=== PATIENT | female | born 1970 | race Caucasian/White ===

== ENCOUNTER 2017-10-23 12:13 | Emergency (ER) | payer SELFPAY ==
[~2017-10-23] VITALS: Ht 162.6 cm; Wt 160.0 kg
[2017-10-23 12:40] VITALS: BP 184/90; PULSE 90; RESP 20; TEMP 98.6; O2SAT 94
[2017-10-23] MEDS ORDERED: SODIUM CHLORIDE 0.9% FLUSH 10 ML FLUSH IVF PRN (13:15)
--- NOTE | 2017-10-23 13:38 | PD ---
HPI Chief Complaint: Cardiac Complaint Time Seen by Provider: 12:54 Travel History International Travel<30 days: No Contact w/Intl Traveler<30days: No Traveled to known affect area: No History of Present Illness HPI 47-year-old female presents to the emergency department with complaint of heart "fluttering "that started on Sunday. She thought it was her anxiety and so she took a quarter of an Ativan and she also took an additional half of 1 of her atenolol and a calm down. He was better yesterday, but today it has become more constant and she felt like passing out earlier. She did take another quarter of a 1 mg Ativan and has not had any relief of the fluttering sensation. She denies chest pain. Reports shortness of breath "a little" with walking. No shortness of breath while at rest. Denies fever, vomiting, abdominal pain. Denies recent illness to include cough or congestion. Shortness breath is aggravated with walking. Heart palpitations were calm down with Ativan and atenolol on Sunday. Symptoms are moderate to severe in severity. Fluttering has been constant today. Primary CARE providers Dr. Fay. No known allergies. History of hypertension and anxiety. Also states she started a ketogenic diet in May and has lost 26 pounds. She has no other medical complaints. No other modifying factors or associated signs and symptoms. PFSH Past Medical History ?: Not Social History Tobacco Use: No Allergies-Medications (Allergen,Severity, Reaction): Coded Allergies: No Known Allergies (Unverified , 10/23/17) Review of Systems Except as stated in HPI: all other systems reviewed are Neg Physical Exam Narrative GENERAL: Well-nourished, well-developed female patient, in no acute distress SKIN: Warm and dry. HEAD: Atraumatic. Normocephalic. EYES: Pupils equal and round. No scleral icterus. No injection or drainage. ENT: Mucosa pink and moist. Airway patent. NECK: Trachea midline. CARDIOVASCULAR: Regular rate and rhythm. No murmur appreciated. RESPIRATORY: No accessory muscle use. Breath sounds clear and equal bilaterally. No retractions or tachypnea. GASTROINTESTINAL: Morbidly obese MUSCULOSKELETAL: No obvious deformities. No clubbing. No cyanosis. No edema. NEUROLOGICAL: Awake and alert. Oriented 3. No obvious cranial nerve deficits. Motor grossly within normal limits. Normal speech. PSYCHIATRIC: Appropriate mood and affect; insight and judgment normal. Data Data Last Documented VS Vital Signs Date Time Temp Pulse Resp B/P (MAP) Pulse Ox O2 Delivery O2 Flow Rate FiO2 10/23/17 19:31 10/23/17 14:29 100 Room Air 10/23/17 12:40 98.6 90 20 Orders Orders Electrocardiogram (10/23/17 13:06) Basic Metabolic Panel (Bmp) (10/23/17 13:06) Ckmb (Isoenzyme) Profile (10/23/17 13:06) Complete Blood Count With Diff (10/23/17 13:06) Magnesium (Mg) (10/23/17 13:06) Prothrombin Time / Inr (Pt) (10/23/17 13:06) Act Partial Throm Time (Ptt) (10/23/17 13:06) Troponin I (10/23/17 13:06) Ecg Monitoring (10/23/17 13:06) Iv Access Insert/Monitor (10/23/17 13:06) Oximetry (10/23/17 13:06) Sodium Chloride 0.9% Flush (Ns Flush) (10/23/17 13:15) Chest, Pa & Lat (10/23/17 13:06) Troponin I (10/23/17 17:15) Ed Discharge Order (10/23/17 19:14) Labs Laboratory Tests Test 10/23/17 14:15 10/23/17 17:30 White Blood Count 8.8 TH/MM3 Red Blood Count 4.88 MIL/MM3 Hemoglobin 13.1 GM/DL Hematocrit 38.7 % Mean Corpuscular Volume 79.3 FL Mean Corpuscular Hemoglobin 26.8 PG Mean Corpuscular Hemoglobin Concent 33.8 % Red Cell Distribution Width 14.8 % Platelet Count 282 TH/MM3 Mean Platelet Volume 7.8 FL Neutrophils (%) (Auto) 65.8 % Lymphocytes (%) (Auto) 27.7 % Monocytes (%) (Auto) 4.8 % Eosinophils (%) (Auto) 0.8 % Basophils (%) (Auto) 0.9 % Neutrophils # (Auto) 5.8 TH/MM3 Lymphocytes # (Auto) 2.4 TH/MM3 Monocytes # (Auto) 0.4 TH/MM3 Eosinophils # (Auto) 0.1 TH/MM3 Basophils # (Auto) 0.1 TH/MM3 CBC Comment DIFF FINAL Differential Comment Prothrombin Time 10.3 SEC Prothromb Time International Ratio 1.0 RATIO Activated Partial Thromboplast Time 25.4 SEC Blood Urea Nitrogen 11 MG/DL Creatinine 0.70 MG/DL Random Glucose 107 MG/DL Calcium Level 9.1 MG/DL Magnesium Level 1.9 MG/DL Sodium Level 138 MEQ/L Potassium Level 3.8 MEQ/L Chloride Level 101 MEQ/L Carbon Dioxide Level 28.9 MEQ/L Anion Gap 8 MEQ/L Estimat Glomerular Filtration Rate 90 ML/MIN Total Creatine Kinase 64 U/L Troponin I LESS THAN 0.02 NG/ML LESS THAN 0.02 NG/ML MDM Medical Decision Making Medical Screen Exam Complete: Yes Emergency Medical Condition: Yes Medical Record Reviewed: Yes Differential Diagnosis Heart palpitations, anxiety, GA, SVT, ACS Narrative Course 47-year-old female with complaint of heart fluttering since Sunday. Has history of anxiety. Denies chest pain. Reports shortness of breath with activity. No shortness of breath while at rest. Patient is in no acute distress. I discussed the patient with Dr. Velazquez and he agrees with my plan of care. Chest pain protocol ordered; EKG, chest x-ray ordered. EKG with normal sinus rhythm; without ST elevation or depression; reviewed by Dr. Velazquez. 1500: CBC, CMP unremarkable. Troponin less than 0.02. Coags unremarkable. Chest x-ray unremarkable. Repeat troponin ordered for 3 hours. 1913: Less than 0.02. Instructed patient to follow-up with stock blender and for outpatient Holter monitoring. Instructed patient to follow up with primary care provider. Patient verbalizes understanding and agreement with treatment plan. Patient is medically cleared and stable for discharge. Discussed reasons to return to the emergency department. Patient agrees with treatment plan. The patients vital signs are stable and the patient is stable for outpatient follow-up and treatment. Patient discharged home, stable and in no acute distress. Diagnosis Primary Impression: Heart palpitations Referrals: [facility] Primary Care Physician Patient Instructions: General Instructions, Heart Palpitations (ED) Additional Instructions: Continue medications as prescribed Follow-up outpatient for Holter monitoring Follow-up with stock blender Follow-up with primary care provider Return to emergency department immediately with worsening of symptoms Med/Other Pt SpecificInfo: No Change to Meds, No Meds Exist/No RX given Disposition: 01 DISCHARGE HOME Condition: Stable Chasity Pearce Oct 23, 2017 13:38
--- NOTE | 2017-10-23 14:08 | RADRPT ---
EXAM DATE: 10/23/2017 1:59 PM EDT AGE/SEX: 47 years / Female INDICATIONS: Heart palpitations, dizziness, short of breath. CLINICAL DATA: This is the patient's initial encounter. Patient reports that signs and symptoms have been present for 3 days and indicates a pain score of 0/10. MEDICAL/SURGICAL HISTORY: . high blood pressure. None. COMPARISON: No prior exams available for comparison. FINDINGS: PA and lateral views of the chest demonstrate a normal-sized cardiac silhouette. There is no effusion , consolidation, or pneumothorax. The bones and soft tissues demonstrate no acute abnormality. CONCLUSION: No acute cardiopulmonary abnormality is identified. Electronically signed by: Cordell Calvert MD 10/23/2017 2:07 PM EDT
[2017-10-23 14:24] LABS: AUTOMATED NEUTROPHIL # 5.8 TH/MM3 (1.8-7.7); BASOPHIL # 0.1 TH/MM3 (0-0.2); BASOPHIL % 0.9 % (0.0-2.0); EOSINOPHIL # 0.1 TH/MM3 (0-0.4); EOSINOPHIL % 0.8 % (0.0-4.0); HEMATOCRIT 38.7 % (35.0-46.0); HEMOGLOBIN 13.1 GM/DL (11.6-15.3); LYMPH % 27.7 % (9.0-44.0); LYMPHOCYTE # 2.4 TH/MM3 (1.0-4.8); MEAN CELL VOLUME 79.3 FL (80.0-100.0); MEAN CORPUSCULAR HEMOGLOBIN 26.8 PG (27.0-34.0); MEAN CORPUSCULAR HGB CONC 33.8 % (32.0-36.0); MEAN PLATELET VOLUME 7.8 FL (7.0-11.0); MONO % 4.8 % (0.0-8.0); MONOCYTE # 0.4 TH/MM3 (0-0.9); NEUT % 65.8 % (16.0-70.0); PLATELET COUNT 282 TH/MM3 (150-450); RED BLOOD COUNT 4.88 MIL/MM3 (4.00-5.30); RED CELL DISTRIBUTION WIDTH 14.8 % (11.6-17.2); WHITE BLOOD COUNT 8.8 TH/MM3 (4.0-11.0)
[2017-10-23 14:29] VITALS: BP 132/70; O2SAT 100
[2017-10-23 14:36] LABS: PROTHROMBIN TIME - PATIENT 10.3 SEC (9.8-11.6)
[2017-10-23 14:46] LABS: BICARBONATE 28.9 MEQ/L (21.0-32.0); BLOOD UREA NITROGEN 11 MG/DL (7-18); CALCIUM 9.1 MG/DL (8.5-10.1); CHLORIDE 101 MEQ/L (98-107); GLOMERULAR FILTRATION RATE 90 ML/MIN (>89); GLUCOSE,RANDOM 107 MG/DL (74-106); MAGNESIUM 1.9 MG/DL (1.5-2.5); SODIUM (NA) 138 MEQ/L (136-145); TROPONIN I LESS THAN 0.02 NG/ML (0.02-0.05)
--- NOTE | 2017-10-23 15:11 | PD ---
Physical Exam Date Seen by Provider: Oct 23, 2017 Time Seen by Provider: 15:08 Narrative The patient is a 47-year-old female who was initially evaluated by the mid-level provider. Please refer to the initial history, physical, diagnostic evaluation, and treatment modality plan. Data Data Last Documented VS Vital Signs Date Time Temp Pulse Resp B/P (MAP) Pulse Ox O2 Delivery O2 Flow Rate FiO2 10/23/17 14:29 132/70 (90) 100 Room Air 10/23/17 12:40 98.6 90 20 Orders Orders Electrocardiogram (10/23/17 13:06) Basic Metabolic Panel (Bmp) (10/23/17 13:06) Ckmb (Isoenzyme) Profile (10/23/17 13:06) Complete Blood Count With Diff (10/23/17 13:06) Magnesium (Mg) (10/23/17 13:06) Prothrombin Time / Inr (Pt) (10/23/17 13:06) Act Partial Throm Time (Ptt) (10/23/17 13:06) Troponin I (10/23/17 13:06) Ecg Monitoring (10/23/17 13:06) Iv Access Insert/Monitor (10/23/17 13:06) Oximetry (10/23/17 13:06) Sodium Chloride 0.9% Flush (Ns Flush) (10/23/17 13:15) Chest, Pa & Lat (10/23/17 13:06) Troponin I (10/23/17 17:15) Labs Laboratory Tests Test 10/23/17 14:15 White Blood Count 8.8 TH/MM3 Red Blood Count 4.88 MIL/MM3 Hemoglobin 13.1 GM/DL Hematocrit 38.7 % Mean Corpuscular Volume 79.3 FL Mean Corpuscular Hemoglobin 26.8 PG Mean Corpuscular Hemoglobin Concent 33.8 % Red Cell Distribution Width 14.8 % Platelet Count 282 TH/MM3 Mean Platelet Volume 7.8 FL Neutrophils (%) (Auto) 65.8 % Lymphocytes (%) (Auto) 27.7 % Monocytes (%) (Auto) 4.8 % Eosinophils (%) (Auto) 0.8 % Basophils (%) (Auto) 0.9 % Neutrophils # (Auto) 5.8 TH/MM3 Lymphocytes # (Auto) 2.4 TH/MM3 Monocytes # (Auto) 0.4 TH/MM3 Eosinophils # (Auto) 0.1 TH/MM3 Basophils # (Auto) 0.1 TH/MM3 CBC Comment DIFF FINAL Differential Comment Prothrombin Time 10.3 SEC Prothromb Time International Ratio 1.0 RATIO Activated Partial Thromboplast Time 25.4 SEC Blood Urea Nitrogen 11 MG/DL Creatinine 0.70 MG/DL Random Glucose 107 MG/DL Calcium Level 9.1 MG/DL Magnesium Level 1.9 MG/DL Sodium Level 138 MEQ/L Potassium Level 3.8 MEQ/L Chloride Level 101 MEQ/L Carbon Dioxide Level 28.9 MEQ/L Anion Gap 8 MEQ/L Estimat Glomerular Filtration Rate 90 ML/MIN Total Creatine Kinase 64 U/L Troponin I LESS THAN 0.02 NG/ML [facility] Medical Record Reviewed: Yes Supervised Visit with JANE: Yes Interpretation(s) EKG reveals normal sinus rhythm with a rate 82. Q-wave noted in lead III. QTc 439 ms. Last Impressions Chest X-Ray 10/23/17 1306 Signed Impressions: CONCLUSION: No acute cardiopulmonary abnormality is identified. Laboratory Tests Test 10/23/17 14:15 White Blood Count 8.8 TH/MM3 Red Blood Count 4.88 MIL/MM3 Hemoglobin 13.1 GM/DL Hematocrit 38.7 % Mean Corpuscular Volume 79.3 FL Mean Corpuscular Hemoglobin 26.8 PG Mean Corpuscular Hemoglobin Concent 33.8 % Red Cell Distribution Width 14.8 % Platelet Count 282 TH/MM3 Mean Platelet Volume 7.8 FL Neutrophils (%) (Auto) 65.8 % Lymphocytes (%) (Auto) 27.7 % Monocytes (%) (Auto) 4.8 % Eosinophils (%) (Auto) 0.8 % Basophils (%) (Auto) 0.9 % Neutrophils # (Auto) 5.8 TH/MM3 Lymphocytes # (Auto) 2.4 TH/MM3 Monocytes # (Auto) 0.4 TH/MM3 Eosinophils # (Auto) 0.1 TH/MM3 Basophils # (Auto) 0.1 TH/MM3 CBC Comment DIFF FINAL Differential Comment Prothrombin Time 10.3 SEC Prothromb Time International Ratio 1.0 RATIO Activated Partial Thromboplast Time 25.4 SEC Blood Urea Nitrogen 11 MG/DL Creatinine 0.70 MG/DL Random Glucose 107 MG/DL Calcium Level 9.1 MG/DL Magnesium Level 1.9 MG/DL Sodium Level 138 MEQ/L Potassium Level 3.8 MEQ/L Chloride Level 101 MEQ/L Carbon Dioxide Level 28.9 MEQ/L Anion Gap 8 MEQ/L Estimat Glomerular Filtration Rate 90 ML/MIN Total Creatine Kinase 64 U/L Troponin I LESS THAN 0.02 NG/ML Differential Diagnosis Differential diagnosis includes palpitations, arrhythmia, valvular disorder, electrolyte abnormality, somatization, anxiety, dysrhythmia. Narrative Course The patient was initially evaluated by the mid-level provider. Please refer to the initial history, physical, diagnostic evaluation, and treatment modality plan. The patient states she has had some intermittent heart palpitations, which she describes as "fluttering ", and anterior chest. She denies any actual chest pain or shortness of breath. She does have a history of similar symptoms in the past and had a echocardiogram several years ago which was unremarkable. The patient is currently followed by her primary physician, Dr. Neo Fay. The patient did not have a previous Holter monitor or event monitor when she had the symptoms. She attributed her initial palpitations years ago distress. She does note she is under some increased stress recently because her [id number] is living with her. The patient also notes a 26 pound weight loss since May as she is currently on the keto diet. The patient tried taken atenolol and Ativan at home without any alleviation of her symptoms she does note they are intermittent, not present at the current time. She denies any chest pain. She denies any known history of CAD. Initial troponin was less than 0.02, therefore, 3 hour troponin level will be ordered. If negative the patient follow-up with her primary physician for outpatient Holter monitor. Diagnosis Primary Impression: Heart palpitations Patient Instructions: General Instructions Additional Instruction: Please provide the patient a copy of her EKG results, chest x-ray results, and lab results at discharge. Follow-up with her primary physician. Return if symptoms worsen or progress. Disposition: 01 DISCHARGE HOME Condition: Stable Álvaro Velazquez MD Oct 23, 2017 15:11
--- NOTE | 2017-10-24 14:01 | EKG ---
Date Performed: 10/23/2017 Time Performed: 13:15:15 PTAGE: 47 years EKG: Sinus rhythm POSSIBLE RIGHT VENTRICULAR CONDUCTION DELAY POSSIBLE INFERIOR MYOCARDIAL INFARCTION BORDERLINE ECG NO PREVIOUS TRACING DOCTOR: Hunter Jeffrey Interpretating Date/Time 10/24/2017 14:00:12
== END 2017-10-23 19:34 | disposition home or self-care (01) ==
LOC: NEPD 12:13
DX: R00.2 Palpitations (principal); F41.9 Anxiety disorder, unspecified; I10 Essential (primary) hypertension; R06.02 Shortness of breath; E66.01 Morbid (severe) obesity due to excess calories
CPT/HCPCS: 71046; 80048; 82550; 83735; 84484; 85025; 85610; 85730; 93005; 99285